=== PATIENT | female | born 1995 | race Caucasian/White ===

== ENCOUNTER → 2016-05-25 | Outpatient (CLI) | payer OTHER | LOC: BHSO 10:36 | DX: F33.41 Major depressive disorder, recurrent, in partial remission (principal) ==

== ENCOUNTER → 2016-06-26 | Outpatient (CLI) | payer OTHER | LOC: BHSO 09:19 | DX: F33.41 Major depressive disorder, recurrent, in partial remission (principal) ==

== ENCOUNTER → 2016-08-26 | Outpatient (CLI) | payer OTHER | LOC: BHSO 13:38 | DX: F33.42 Major depressive disorder, recurrent, in full remission (principal) ==

== ENCOUNTER → 2016-12-08 | Outpatient (CLI) | payer OTHER | LOC: BHSO 09:14 | DX: F41.1 Generalized anxiety disorder (principal) ==

== ENCOUNTER → 2017-03-08 | Outpatient (CLI) | payer OTHER | LOC: BHSO 08:39 | DX: F33.42 Major depressive disorder, recurrent, in full remission (principal) ==